=== PATIENT | female | born 1950 | race Caucasian/White ===

== ENCOUNTER 2020-05-13 04:31 | Day surgery (SDC) | payer OTHER, MEDICARE ==
--- OUTSIDE RECORDS SUMMARY | 2020-04-21 13:28 | XMS ---
:1950 Author Organization [facility] Care Team Providers Name Role Phone AHMAD, HASAN Unavailable Unavailable ORTHODOXY, HUMAYUN Unavailable Unavailable AHMED, TAUSEEF Unavailable Unavailable Re-disclosure Warning The records that you are about to access may contain information from federally- assisted alcohol or drug abuse programs. If such information is present, then the following federally mandated warning applies: This information has been disclosed to you from records protected by federal confidentiality rules (42 CFR part 2). The federal rules prohibit you from making any further disclosure of this information unless further disclosure is expressly permitted by the written consent of the person to whom it pertains or as otherwise permitted by 42 CFR part 2. A general authorization for the release of medical or other information is NOT sufficient for this purpose. The Federal rules restrict any use of the information to criminally investigate or prosecute any alcohol or drug abuse patient.The records that you are about to access may contain highly sensitive health information, the redisclosure of which is protected by Article 27-F of the [facility] Public Health law. If you continue you may haveaccess to information: Regarding HIV / AIDS; Provided by facilities licensed or operated by the [facility] Office of Mental Health; or Provided by the [facility] Office for People With Developmental Disabilities. If such information is present, then the following [facility] mandated warning applies: This information has been disclosed to you from confidential records which are protected by state law. State law prohibits you from making any further disclosure of this information without the specific written consent of the person to whom it pertains, or as otherwise permitted by law. Any unauthorized further disclosure in violation of state law may result in a fine or group home sentence or both. A general authorization for the release of medical or other information is NOT sufficient authorization for further disclosure. Allergies and Adverse Reactions Type Description Substance Reaction Status Data Source(s ) Food allergy egg egg [facility] Drug allergy egg egg [facility] Drug allergy [place] [employer] [facility] Encounters Encounter Providers Location Date Indications Data Source(s ) Outpatient Attender: DARRIUS 10/10/2019 C50.911 [facility] TAUSEEFAdmitter: 03:23:00 PM Health Care ORTHODOXY, [employer] HUMAYUNReferrer: EVON RIZO C50.911 Outpatient Attender: ALCIRA, 04/17/2019 10:32:00 C50.911 [facility] HASANAdmitter: SANDRO ELI EDT [facility] Care HASANReferrer: Say ELI poration NIKKI C50.911 Insurance Providers Payer name Policy type Policy ID Covered Covered libertarian's Policy P meaghan / Coverage libertarian ID relationship to Valerio Inf ormation type valerio [facility] [id number] SP [id number] CARE OPTIONS MEDICARE [id number] [facility] [id number] SP [id number] CARE OPTIONS Problems, Conditions, and Diagnoses Code Display Name Description Problem Type Effective Data Sour ce(s) Dates C50.911 Malignant MALIGNANT Diagnosis 10/10/2019 [place] neoplasm of NEOPLASM OF UNSP 03:23:00 PM [facility] unspecified site SITE OF RIGHT [employer] of right female FEMALE BREAST breast Results ID Date Data Source [id number] 02/21/2020 04:03:00 PM EDT [facility] Name Value Range Interpretation Description Data Sup porting Code Source(s) Document(s ) SARS CoV-2 [facility] Interpretation This lab was ordered by [facility] and reported by [facility]. Procedure
[2020-05-12 16:43] VITALS: BMI 43.3
--- OUTSIDE RECORDS SUMMARY | 2020-05-13 04:35 | XMS ---
:1950 Author Organization [facility] Care Team Providers Name Role Phone AHMAD, HASAN Unavailable Unavailable RELIGION, HUMAYUN Unavailable Unavailable AHMED, TAUSEEF Unavailable Unavailable [...] is protected by Article 27-F of the [facility] Public Health law. If you continue you may haveaccess to information: Regarding HIV / AIDS; Provided by facilities licensed or operated by the [facility] Office of Mental Health; or Provided by the [facility] Office for People With Developmental Disabilities. If such information is present, then the following [facility] mandated warning applies: This information has been [...] law may result in a fine or snf sentence or both. A general authorization for the release of medical or other information is NOT sufficient authorization for further disclosure. Encounters Encounter Providers Location Date Indications Data Source(s ) Outpatient Attender: DARRIUS, 10/10/2019 C50.911 [facility] TAUSEEFAdmitter: 03:23:00 PM Health Care RELIGION, [employer] HUMAYUNReferrer: MASON RIZOHAN C50.911 Outpatient Attender: LUIS MANUELBessy, 04/17/2019 10:32:00 C50.911 [facility] HASANAdmitter: ALCIRA AM EDT [facility] Care HASANReferrer: ALCIRA Cor poration HASAN C50.911 Insurance Providers Payer name Policy type Policy ID Covered Covered constitution party's Policy P meaghan / Coverage constitution party ID relationship to Valerio Inf ormation type valerio [facility] [id number] SP [id number] CARE OPTIONS MEDICARE [id number] SP [id number] W87 [facility] [id number] SP [id number] CARE OPTIONS Problems, Conditions, and Diagnoses Code Display Name Description Problem Type Effective Data Sour ce(s) Dates C50.911 Malignant MALIGNANT Diagnosis 10/10/2019 [place]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 ID Date Data Source [id number] 02/21/2020 04:03:00 PM EDT [facility] Name Value Range Interpretation Description Data Sup porting Code Source(s) Document(s ) SARS CoV-2 [facility] Interpretation [facility] and reported by [facility]. Procedure
[2020-05-13] MEDS ORDERED: PROPOFOL 20 ML ONE ×2 (09:23→10:52)
[2020-05-13] MEDS ORDERED: MIDAZOLAM HCL 2 MG/2 ML SINGLE DOSE VIAL ONE ×2 (09:23→10:28)
[2020-05-13] MEDS ORDERED: LIDOCAINE HCL 1%, 10 MG/ML (20ML VIAL) ONE ×2 (09:44→10:58)
[2020-05-13] MEDS ORDERED: HEPARIN NA (PORCINE) 5,000 UNITS/ML 1ML VIAL ONE (09:44)
[2020-05-13] MEDS ORDERED: PAPAVERINE HCL 30 MG/1 ML 10 ML VIAL NR ONE (09:44)
--- NOTE | 2020-05-13 09:48 | HP ---
Satellite H - Chief Complaint History of Present Illness: 69 year old woman with renal failure, stage 5. She is right handed. History Source: Patient Limitations to Obtaining History: No Limitations - Past Medical History Allergies/Adverse Reactions: Allergies Allergy/AdvReac Type Severity Reaction Status Date / Time castor oil Allergy Severe Rash Verified 05/13/20 08:31 venom-honey bee Allergy Rash Verified 05/13/20 08:31 [bee venom (honey bee)] Cardiovascular: Yes: HTN, Hyperlipdemia - Current Medications Current Medications: Home Medications Medication Instructions Recorded Ergocalciferol (Vitamin D2) 25 mcg PO ASDIR 05/12/20 [Vitamin D2] Metoprolol Succinate [Toprol Xl] 50 mg PO DAILY 05/12/20 Pravastatin Sodium [Pravachol (Nf)] 40 mg PO HS 05/12/20 Sodium Bicarbonate 650 mg PO BID 05/12/20 Satellite Physical Exam - Physical Examination Vital Signs: Vital Signs Period Temp Pulse Resp BP Sys/Lowe Pulse Ox Last 24 Hr 97.8 F 82 16 138/74 100 General Appearance: Well Developed, Alert & Oriented x3 ENT: Clear Lung: Clear to auscultation Heart: Regular rate & rhythm Abdomen: Soft Extremities: No edema Satellite Impression/Plan - Impression/Plan Impression: CKD stage 5 Operative Procedure: Placement AV graft left arm Date to be Performed: 05/13/20
[2020-05-13] MEDS ORDERED: ceFAZolin SODIUM 1 GM VIAL IVPB ONE (10:25)
[2020-05-13] MEDS ORDERED: SODIUM CHLORIDE 0.9% P/F 10 ML VIAL IJ ONE ×2 (10:25→11:01)
[2020-05-13] MEDS ORDERED: ONDANSETRON 4 MG/2 ML VIAL ONE ×2 (10:25→10:40)
[2020-05-13] MEDS ORDERED: ceFAZolin SODIUM 1 GM VIAL ONE (10:25)
[2020-05-13] MEDS ORDERED: LIDOCAINE HCL 1%, 10 MG/ML (20ML VIAL) INF ONE (10:54)
[2020-05-13] MEDS ORDERED: SODIUM CHLORIDE 1,000 ML IV SCH (12:45)
[2020-05-13] MEDS ORDERED: ONDANSETRON 4 MG/2 ML VIAL IVPUSH PRN (12:45)
[2020-05-13] MEDS ORDERED: oxyCODONE HCL 5 MG TABLET PO PRN (12:45)
--- NOTE | 2020-05-13 12:46 | SURG ---
Surgery Personal Injury Legal Assistant Note Personal Injury Legal Assistant: Luis F Méndez PA-C Date of Service: 05/13/20 Diagnosis: End stage renal failure Procedure: Creation AV graft Left arm I was present for the entirety of the operative procedure. For further detail, p josiah refer to operative report. Visit type - Case Type Case Type: Scheduled - Emergency Emergency Visit: No - New patient This patient is new to me today: Yes Date on this admission: 05/13/20 - Critical Care Critical Care patient: No
--- NOTE | 2020-05-13 12:48 | OP ---
Operative Note - Note: Operative Date: 05/13/20 Pre-Operative Diagnosis: Renal failure Operation: Placement AV graft left arm Findings: Small caliber axillary vein and artery Implants: 4-7 mm PTFE graft Post-Operative Diagnosis: Same as Pre-op Surgeon: Rudolph Gallardo Secretary To Board Of Commissioners: Luis F Méndez Anesthesiologist/CNC SET UP OPERATOR: Claire Porter Estimated Blood Loss (mls): 30
[2020-05-13 13:56] VITALS: TEMP 97.8
[2020-05-13 14:26] VITALS: BP 122/56; PULSE 66
--- NOTE | 2020-05-18 14:53 | OP ---
DATE OF OPERATION: 05/13/2020 SURGEON: Rudolph Gallardo MD VEHICLE FARE COLLECTOR: ALEXANDRE Stanton PROCEDURE: Placement of arteriovenous graft, left arm. PREOPERATIVE DIAGNOSIS: Renal failure. POSTOPERATIVE DIAGNOSIS: Renal failure. ANESTHESIA: Fractional. ANESTHESIOLOGIST: Claire Porter MD OPERATIVE FINDINGS: The left axillary vein and artery were patent but of small caliber. OPERATIVE PROCEDURE: Following routine patient identification with side and site verification intravenous sedation was established. The left arm was prepped with ChloraPrep. Timeout was performed. Lidocaine 1% was infiltrated in the axilla and a longitudinal incision made. Subcutaneous tissues were divided using cautery for hemostasis. The axillary artery and vein were mobilized and secured with vessel loops. Side branches were ligated with silk ties and divided. A counterincision was then made proximal to the elbow crease. A curved metal tunneler was passed over the anterior aspect of the arm between the 2 incisions and a 4-7-mm PTFE graft was passed through the tunneler. The tunneler was then repassed between the 2 incisions over the medial aspect of the arm and the graft passed again to create a loop configuration. The artery was occluded with vascular clamps and opened on the exposed surface with a 6 mm arteriotomy. The small end of the graft was beveled and anastomosed to the side of the artery with running suture of 6-0 Prolene. Prior to completion of the suture line the artery was allowed to back bleed and flush. Then the graft was occluded with a vascular clamp. Suture line was completed. Then the artery was released. Bleeding from the suture line was controlled with Surgicel. The vein was then occluded with a bull dog clamp and vessel loop and opened on exposed surface with a 15 mm venotomy. The large end of the graft was beveled and anastomosed to the side of the vein with running suture of 6-0 Prolene. Prior to completion of the suture line the artery was allowed to back bleed and the graft was allowed to flush and then filled with heparin solution. Suture line was completed and all vessels were released. There was good flow through the graft with a palpable pulse present. Surgicel was applied to the suture lines. The wounds were then closed with interrupted suture of 3-0 Vicryl on the subcutaneous tissues and skin robbie. Sterile dressings were applied and the patient was taken to the recovery room in stable condition. Valarie [id number]
== END 2020-05-13 14:28 | disposition home or self-care (01) ==
LOC: JASUSAT 04:31
PROVIDERS: ATTEND Surgery
PROC: 03160JD Bypass Left Axillary Artery to Upper Arm Vein with Synthetic Substitute, Open Approach (ICD-10-PCS; principal; 2020-05-13 10:00)
DX: I12.0 Hypertensive chronic kidney disease with stage 5 chronic kidney disease or end stage renal disease (principal); N18.6 End stage renal disease
CPT/HCPCS: 94760; J1644

== ENCOUNTER → 2025-03-12 | Day surgery (SDC) | payer OTHER, MEDICARE | END | disposition home or self-care (01) | LOC: JMAMMO-SUR 12:46 | PROVIDERS: ATTEND Physician Assistant | PROC: 0H9U3ZX Drainage of Left Breast, Percutaneous Approach, Diagnostic (ICD-10-PCS; principal; 2025-03-12) | DX: D24.2 Benign neoplasm of left breast (principal) | CPT/HCPCS: 19083; 76942-TC; 77065-TC; 87899; 88305-TC; A4648 ==